=== PATIENT | female | born 1960 | race African-American/Black ===

== ENCOUNTER 2017-06-18 21:51 | Emergency (ER) | payer OTHER ==
[~2017-06-18] VITALS: Ht 172.7 cm; Wt 163.3 kg
--- NOTE | ~2017-06-18 | CR72 ---
[facility] A Service of [facility] RADIOLOGY TEXT RESULTS PATIENT: DAVIN SPEAR LOCATION: [facility] : 56 UNIT #: [id number] AGE: [address]: Darian Arguello MD SEX: F ORDER DR: [id number] [facility] [address] [place], [place] [address] [id number] MR#: [id number] Acc #: [id number] NAME: DAVIN SPEAR : 1960 SEX: F STUDY DATE/TIME: 06/18/2017 22:59 UNIT: [facility] ROOM: STUDY DESCRIPTION: CR Chest Single View Portable Attending Physician: Darian Arguello M.D. Ordering Physician: Darian Arguello M.D. Primary Care Physician: [facility], [facility]. MEDICAL IMAGING REPORT This report is preliminary unless electronic signature is present EXAM Chest x-ray, 06/18/2017. HISTORY 56-year-old female in the ED complaining of a 2-3-day history of chest pain, shortness of air and cough. TECHNIQUE AP portable chest x-ray. FINDINGS Markedly limited examination secondary to patient body habitus and the limitations of AP portable radiographic technique in this patient. [id number] cardiomegaly. Pulmonary vascularity is within normal limits. The lungs are grossly clear. No visible pleural effusion. No significant change since 08/13/2016. IMPRESSION 1. Technically limited study as noted. 2. Moderate cardiomegaly. Dictated by... Iván Hoyos M.D. THIS IS AN ELECTRONICALLY VERIFIED REPORT Iván Hoyos M.D. at 06/19/2017 9:52 PM RGW/tmw TD: 06/19/2017 08:40 JOB #: [id number] [facility] A Service of [facility] RADIOLOGY TEXT RESULTS PATIENT: DAVIN SPEAR LOCATION: [facility] : 56 UNIT #: [id number] AGE: [address]: Darian Arguello MD SEX: F ORDER DR: MEDICAL IMAGING REPORT Page 1 of 1 COPY
[~2017-06-18 21:51] MED LIST: ALBUTEROL17 GM INH; AMLODIPINE-ATO1 EAC4 PO; FUROSEMIDE40 MG PO; GABAPENTIN600 MG PO; GLUCOPHAGE500 M1 PO; LISINOPRIL20 MG PO; METOPROLOL SUC100 MG PO; NORCO 10-325 TA1 TAB PO; PANTOPRAZOLE SO40 MG PO; PERCOCET 10/3251 TAB PO; PREDNISONE10 MG PO; SYMBICORT INH
[2017-06-18 22:34] LABS: BASOPHIL% 0.6 % (0-2.5); EOSINOPHIL# 0.1 X10e3 (0-0.7); EOSINOPHIL% 1.1 % (0.0-7.0); HEMATOCRIT 38.7 % (35.0-45.0); HEMOGLOBIN 12.7 gm/dL (12.0-16.0); LYMPHOCYTE# 1.6 X10e3 (1.0-3.5); LYMPHOCYTE% 20.1 % (17.0-45.0); MEAN CELL VOLUME 89.7 FL (83-96); MEAN CORPUSCULAR HEMOGLOBIN 29.4 PG (28-34); MEAN CORPUSCULAR HGB CONC 32.8 g/dL (30-36); MEAN PLATELET VOLUME 7.8 FL (6.5-11.5); MONOCYTE# 0.6 X10e3 (0-1.0); MONOCYTE% 7.4 % (3.0-12.0); NEUTROPHIL# 5.8 X10e3 (1.5-7.1); NEUTROPHIL% 70.8 % (40-75); PLATELET COUNT 241 X10e3 (140-420); RED BLOOD COUNT 4.32 X10e (3.90-5.30); WHITE BLOOD COUNT 8.2 X10e3 (4.0-10.5)
[2017-06-18 22:40] LABS: DIFF IND NO
[2017-06-18 22:50] LABS: INR 1.1; PROTHROMBIN TIME (PATIENT) 11.5 SECONDS (10.0-11.7)
[2017-06-18 22:58] LABS: ALBUMIN SERUM 4.1 g/dL (3.5-5.0); BILIRUBIN, DIRECT 0.1 mg/dL (0.0-0.2); BILIRUBIN,INDIRECT 0.2 mg/dL (0.0-0.9); BILIRUBIN,TOTAL 0.3 mg/dL (0.2-2.0); BUN/CREATININE RATIO 14.16; CALCIUM SERUM 8.9 mg/dL (8.4-10.2); CREATININE SERUM 1.2 mg/dL (0.6-1.4); GLOM FILT RATE Estimated 57.7 mL/min (>60); POTASSIUM 3.8 mmol/L (3.5-5.1); PROTEIN TOTAL SERUM 7.7 g/dL (6.0-8.3)
[2017-06-18 23:08] LABS: POC - CKMB 2.1 ng/mL (0.0-7.9); POC - TROPONIN <0.05 ng/mL (<=0.05)
[2017-06-19 01:09] LABS: POC - CKMB 1.6 ng/mL (0.0-7.9); POC - TROPONIN <0.05 ng/mL (<=0.05)
== END 2017-06-19 02:20 | disposition home or self-care (01) ==
LOC: CED 21:51
PROVIDERS: Emergency Medicine
DX: R07.89 Other chest pain (principal); R06.02 Shortness of breath; E11.9 Type 2 diabetes mellitus without complications; I11.0 Hypertensive heart disease with heart failure; I50.9 Heart failure, unspecified; J44.9 Chronic obstructive pulmonary disease, unspecified; F17.200 Nicotine dependence, unspecified, uncomplicated; Z79.899 Other long term (current) drug therapy; Z79.84 Long term (current) use of oral hypoglycemic drugs; Z88.0 Allergy status to penicillin; Z88.2 Allergy status to sulfonamides
CPT/HCPCS: 36415; 71010; 80048; 80076; 82553; 84484; 85025; 85379; 85610; 85730; 87040; 93005; 99285